=== PATIENT | male | born 1990 | race Caucasian/White ===

== ENCOUNTER 2020-09-02 12:07 | Inpatient (IN) | payer OTHER ==
[2020-09-02] MEDS ORDERED: ONDANSETRON *ODT* 4 MG TABLET SL PRN (14:19)
[2020-09-02] MEDS ORDERED: P-EPHED 60MG/TRIPROLIDI 2.5MG TABLET PO PRN (14:19)
[2020-09-02] MEDS ORDERED: METHOCARBAMOL 500 MG TABLET PO PRN (14:19)
[2020-09-02] MEDS ORDERED: MAGNESIUM CITRATE 300 ML BOTTLE PO PRN (14:19)
[2020-09-02] MEDS ORDERED: guaiFENesin 200 MG/10 ML 10 ML UNIT-DOSE CUPS PO PRN (14:19)
[2020-09-02] MEDS ORDERED: cloNIDine HCL 0.1 MG TABLET PO PRN (14:19)
[2020-09-02] MEDS ORDERED: IBUPROFEN 400 MG TABLET (FP) PO PRN (14:19)
[2020-09-02] MEDS ORDERED: MAGNESIUM HYDROX 2400MG/30ML ORAL SUSPENSION 30 ML CUP PO PRN (14:19)
[2020-09-02] MEDS ORDERED: NALOXONE HCL 0.4 MG/ML VIAL IM PRN (14:19)
[2020-09-02] MEDS ORDERED: MENTHOL/PHENOL 1 EACH UD MM PRN (14:19)
[2020-09-02] MEDS ORDERED: BISMUTH SUBSALICYLATE 524 MG/30 ML UD PO PRN (14:19)
[2020-09-02] MEDS ORDERED: ACETAMINOPHEN 325 MG TABLET (FP) PO PRN (14:19)
[2020-09-02] MEDS ORDERED: MAG HYDROX/AL HYDROX/SIMETH 30 ML UNIT-DOSE CUP PO PRN (14:19)
[2020-09-02] MEDS ORDERED: METHADONE HCL 10 MG TABLET (FOR DETOX USE ONLY) PO ONE (15:30)
[2020-09-02 15:48] VITALS: BMI 25.4
[2020-09-02] MEDS ORDERED: METHADONE HCL 10 MG TABLET (FOR DETOX USE ONLY) ONE (20:25)
[2020-09-02] MEDS ORDERED: hydrOXYzine PAMOATE 25 MG CAPSULE (FP) PO ONE (20:25)
[2020-09-02] MEDS: hydrOXYzine PAMOATE 25 MG CAPSULE (FP) PO SCH ×2 (20:32→23:55)
[2020-09-02] MEDS: MELATONIN 5 MG TABLETS PO SCH (23:55)
[2020-09-02] MEDS: THIAMINE HCL 100 MG TABLET (FP) PO SCH (23:55)
[2020-09-02] MEDS: PRENATAL VITAMINS W/ FOLIC ACID TABLET (FP) PO SCH (23:55)
[2020-09-03] MEDS ORDERED: METHOCARBAMOL 500 MG TABLET ONE (03:07)
[2020-09-03] MEDS ORDERED: IBUPROFEN 400 MG TABLET (FP) PO ONE (03:11)
[2020-09-03] MEDS ORDERED: hydrOXYzine PAMOATE 25 MG CAPSULE (FP) PO ONE (06:07)
[2020-09-03] MEDS: hydrOXYzine PAMOATE 25 MG CAPSULE (FP) PO SCH ×5 (06:09→22:39)
[2020-09-03] MEDS ORDERED: METHADONE HCL 5 MG TABLET (FOR DETOX USE ONLY) ONE (09:53)
[2020-09-03] MEDS ORDERED: METHADONE HCL 10 MG TABLET (FOR DETOX USE ONLY) ONE (09:54)
[2020-09-03] MEDS ORDERED: METHADONE (DETOX) 20 MG, METHADONE (DETOX) 5 MG PO ONE (10:00)
[2020-09-03] MEDS: PRENATAL VITAMINS W/ FOLIC ACID TABLET (FP) PO SCH (10:13)
[2020-09-03] MEDS ORDERED: NICOTINE POLACRILEX 4 MG GUM BUC PRN (13:24)
[2020-09-03] MEDS: NICOTINE 21 MG/24 HOURS TOPICAL PATCH TD SCH (14:12)
[2020-09-03] MEDS: THIAMINE HCL 100 MG TABLET (FP) PO SCH (22:39)
[2020-09-03] MEDS: MELATONIN 5 MG TABLETS PO SCH (22:39)
[2020-09-03] MEDS: diazePAM 5 MG TABLET PO PRN (22:43)
[2020-09-04] MEDS: hydrOXYzine PAMOATE 25 MG CAPSULE (FP) PO SCH ×5 (07:03→22:17)
[2020-09-04] MEDS ORDERED: METHADONE HCL 10 MG TABLET (FOR DETOX USE ONLY) PO ONE (10:00)
[2020-09-04] MEDS: diazePAM 5 MG TABLET PO PRN (10:27)
[2020-09-04] MEDS: NICOTINE 21 MG/24 HOURS TOPICAL PATCH TD SCH (10:28)
[2020-09-04] MEDS: PRENATAL VITAMINS W/ FOLIC ACID TABLET (FP) PO SCH (10:28)
[2020-09-04] MEDS ORDERED: MASKS NR ONE (20:24)
[2020-09-04] MEDS: THIAMINE HCL 100 MG TABLET (FP) PO SCH (22:16)
[2020-09-04] MEDS: MELATONIN 5 MG TABLETS PO SCH (22:17)
[2020-09-05] MEDS: hydrOXYzine PAMOATE 25 MG CAPSULE (FP) PO SCH ×5 (06:21→22:34)
[2020-09-05] MEDS ORDERED: METHADONE HCL 5 MG TABLET (FOR DETOX USE ONLY) ONE (08:38)
[2020-09-05] MEDS ORDERED: METHADONE HCL 10 MG TABLET (FOR DETOX USE ONLY) ONE (08:38)
[2020-09-05] MEDS ORDERED: METHADONE (DETOX) 10 MG, METHADONE (DETOX) 5 MG PO ONE (10:00)
[2020-09-05] MEDS: NICOTINE 21 MG/24 HOURS TOPICAL PATCH TD SCH (10:16)
[2020-09-05] MEDS: PRENATAL VITAMINS W/ FOLIC ACID TABLET (FP) PO SCH (10:16)
[2020-09-05] MEDS: diazePAM 5 MG TABLET PO PRN ×3 (10:19→22:34)
[2020-09-05 15:35] LABS: CALCIUM 9.9 mg/dL (8.5-10.1)
[2020-09-05 15:36] LABS: ALBUMIN 4.5 g/dl (3.4-5.0)
[2020-09-05 15:39] LABS: CREATININE 0.8 mg/dL (0.55-1.3)
[2020-09-05 15:41] LABS: BILIRUBIN,TOTAL 0.4 mg/dL (0.2-1); TOT PROT 8.9 g/dl (6.4-8.2)
[2020-09-05 15:44] LABS: HEMATOCRIT 43.9 % (35.4-49); HEMOGLOBIN 15.1 GM/dL (11.7-16.9); MCH 28.5 pg (25.7-33.7); MCHC 34.3 g/dl (32.0-35.9); MEAN CELL VOLUME 83.2 fl (80-96); MEAN PLT VOLUME 9.1 fl (7.5-11.1); PLATELET COUNT 231 K/MM3 (134-434); RBC 5.28 M/mm3 (4.00-5.60); RDW 14.1 % (11.9-15.9); WHITE BLOOD COUNT 7.6 K/mm3 (4.0-10.0)
[2020-09-05] MEDS ORDERED: MASKS NR ONE (18:08)
[2020-09-05] MEDS: MELATONIN 5 MG TABLETS PO SCH (22:34)
[2020-09-05] MEDS: THIAMINE HCL 100 MG TABLET (FP) PO SCH (22:34)
[2020-09-06] MEDS: hydrOXYzine PAMOATE 25 MG CAPSULE (FP) PO SCH (06:43)
[2020-09-06 09:56] VITALS: BP 120/89; PULSE 109; TEMP 97.1
[2020-09-06] MEDS ORDERED: METHADONE HCL 10 MG TABLET (FOR DETOX USE ONLY) PO ONE (10:00)
[2020-09-07] MEDS ORDERED: METHADONE HCL 5 MG TABLET (FOR DETOX USE ONLY) PO ONE (06:00)
== END 2020-09-06 10:13 | disposition home or self-care (01) | DRG 773 ==
LOC: YASAS 12:07 → Y6N 20:15
PROVIDERS: ADMIT Allergy & Immunology; ATTEND Allergy & Immunology
PROC: HZ2ZZZZ Detoxification Services for Substance Abuse Treatment (ICD-10-PCS; principal; 2020-09-02)
DX: F11.23 Opioid dependence with withdrawal (principal); F13.10 Sedative, hypnotic or anxiolytic abuse, uncomplicated; F19.24 Other psychoactive substance dependence with psychoactive substance-induced mood disorder; M21.941 Unspecified acquired deformity of hand, right hand; R63.6 Underweight; Z68.25 Body mass index [BMI] 25.0-25.9, adult; Z87.891 Personal history of nicotine dependence
CPT/HCPCS: 36415; 80053; 85027; 86780; 93005; 93010; C9803; U0003